=== PATIENT | female | born 1970 | race Caucasian/White ===

== ENCOUNTER → 2016-09-07 | Outpatient (CLI) | payer BC ==
[2015-11-20 14:20] VITALS: BP 117/74
[~2016-09-07] MED LIST: ALBU4TAB3 PO; ALPR0.25 PO; BECL8.7A6 IH; CETI10TA22 PO; EPIN0.3A4 IJ; FLUO10TA PO; HYDR-971 PO; MULT1TAB97 PO; NORE1TAB96 PO; OMEG1CAP6 PO; OMEP40CA5 PO; PROAIR HFA8.5 GM INH; SUMA20SP NS; TAMO20TA PO; VENL75CA PO; VERA240C2 PO
--- NOTE | 2016-09-07 13:03 | RAD ---
DATE: 09/07/2016 EXAM: DIGITAL DIAGNOSTIC BILATERAL HISTORY: History of left breast cancer post lumpectomy and radiation therapy. COMPARISON: 10/14/2014, 10/15/2015 and 11/20/2015 This study was interpreted with the benefit of Computerized Aided Detection (CAD). FINDINGS: Digital MLO and CC mammograms of both breasts were obtained. Additionally bilateral implant displacement digital mammograms in the MLO and CC projections of both breasts were obtained. Comparison studies are dated 10/14/2014, 10/15/2015 and 11/20/2015. Bilateral breast implants are again seen. Postsurgical changes are seen in the left breast consistent with the patient's history of a lumpectomy. The breast parenchyma is heterogeneously dense which can obscure a lesion on mammography ( breast density code C). No new dominant mass is seen. No malignant appearing calcification is noted. IMPRESSION: BI-RADS Category 2 benign findings. There is no mammographic evidence of malignancy. Routine yearly screening mammography is recommended for follow-up. BI-RADS CATEGORY: 2 BENIGN FINDING(S) RECOMMENDED FOLLOW-UP: 12M 12 MONTH FOLLOW-UP PQRS compliance statement: Patient information was entered into a reminder system with a target due date 09/07/2017 for the next mammogram. Mammography is a sensitive method for finding small breast cancers, but it does not detect them all and is not a substitute for careful clinical examination. A negative mammogram does not negate a clinically suspicious finding and should not result in delay in biopsying a clinically suspicious abnormality. "Our facility is accredited by the [employer] Mammography [employer]."
== END | disposition home or self-care (01) ==
LOC: MAMMO 12:12
PROVIDERS: ATTEND Family Medicine
DX: D05.12 Intraductal carcinoma in situ of left breast (principal)
CPT/HCPCS: G0204; 77066

== ENCOUNTER → 2017-09-23 | Outpatient (CLI) | payer OTHER | END | disposition home or self-care (01) | LOC: MAMMO 10:18 | DX: R92.8 Other abnormal and inconclusive findings on diagnostic imaging of breast (principal); Z85.3 Personal history of malignant neoplasm of breast | CPT/HCPCS: 77066 ==

== ENCOUNTER → 2019-11-01 | Outpatient (CLI) | payer OTHER ==
[2015-11-20 14:20] VITALS: BP 117/74
[~2019-11-01] MED LIST changes: +ALBU2.5V8 INH; -CETI10TA22 PO; +CETI10TA24 PO; -EPIN0.3A4 IJ; +EPIPEN 2-P0.3 MG/0.3 IJ; +HYDR-3164 PO; -HYDR-971 PO; +OMEP40CA45 PO; -OMEP40CA5 PO; -PROAIR HFA8.5 GM INH
--- NOTE | 2019-11-01 10:32 | RAD ---
DATE: 11/01/2019 9:53 AM EXAM: DIGITAL DIAGNOSTIC BILATERAL HISTORY: History of stage 0 left breast cancer in 2016. Surveillance Follow-up. COMPARISON: Mammograms of October 04, 2018, 09/23/2017, 09/07/2016 and 10/15/2015 Bilateral CC and MLO views of the breasts were performed. Implant displaced views were also obtained. Bilateral breast tomosynthesis was performed in implant displaced CC and MLO projections. This study was interpreted with the benefit of Computerized Aided Detection (CAD). FINDINGS: Breast Density: FATTY The Breast Parenchyma is primarily fatty replaced. Breast parenchyma level density A. Benign architectural variation consistent with a surgical scar in the anterior lateral left breast is present. No suspicious masses, microcalcifications or architectural distortion is present to suggest malignancy in either breast. The visualized axillae are unremarkable. IMPRESSION: No mammographic evidence of malignancy. BI-RADS CATEGORY: 2 BENIGN FINDING(S) RECOMMENDED FOLLOW-UP: 12M 12 MONTH FOLLOW-UP Annual screening mammography is recommended, unless clinically indicated sooner based on symptoms or change in physical exam. PQRS compliance statement: Patient information was entered into a reminder system with a target due date 11/01/2020 for the next mammogram. Mammography is a sensitive method for finding small breast cancers, but it does not detect them all and is not a substitute for careful clinical examination. A negative mammogram does not negate a clinically suspicious finding and should not result in delay in biopsying a clinically suspicious abnormality. "Our facility is accredited by the [employer] Mammography [employer]."
== END | disposition home or self-care (01) ==
LOC: MAMMO 09:48
PROVIDERS: ATTEND Family Medicine
DX: R92.8 Other abnormal and inconclusive findings on diagnostic imaging of breast (principal); Z85.3 Personal history of malignant neoplasm of breast
CPT/HCPCS: 77066

== ENCOUNTER → 2020-11-04 | Outpatient (CLI) | payer OTHER ==
[2015-11-20 14:20] VITALS: BP 117/74
[~2020-11-04] MED LIST changes: -CETI10TA24 PO; +CETI10TA74 PO; -OMEP40CA45 PO; +OMEP40CA7 PO
--- NOTE | 2020-11-04 12:26 | RAD ---
EXAM: 1. BILATERAL DIGITAL 3-D DIAGNOSTIC MAMMOGRAPHY. 2. BILATERAL BREAST ULTRASOUND. HISTORY: Personal history of left breast cancer status post breast conservation therapy in 2016. Now recently status post bilateral implant revision. TECHNIQUE: Bilateral full field digital images were obtained in CC and MLO projections and tomosynthe sis with and without implant displacement. Computer-aided detection was applied. Sonography of both b reasts was also performed. COMPARISON: 11/01/2019, 10/04/2018, 09/23/2017. COMPOSITION: B. There are scattered areas of fibroglandular density. FINDINGS: Bilateral subpectoral silicone implants are noted in place. There appear intact. The lumpectomy site lateral to the left nipple on the CC projection now has a more nodular appearance . This is not well seen on the MLO projection. On today's sonography, the fat in the region is diffus pawan hyperechoic, likely reflecting edema in the recent postoperative setting. The sweat band sewer notes a benign cyst at the 5:30 position 6 cm from the nipple. A hypoechoic region along the scar lateral to the nipple appears to be a small cyst measuring 6 x 3 mm, along with more hypoechoic fat, likely spa red from regional edema. No suspicious mass is identified on the left. On the right, a small nodule medial to the nipple line appears circumscribed on tomosynthesis. On todeandre mistry's sonography, this may correspond with a 5 mm cyst at the 11:30 position 5 cm from the nipple. A f ew additional tiny cysts are noted on the right. There is no suspicious mammographic or sonographic f inding. Sonography of both axillae reveal no pathologic-appearing lymph nodes. BI-RADS CATEGORY 3: Probably Benign. RECOMMENDATION: 1. These findings were discussed with the patient. It was planned to follow up the new, likely postop erative appearance of the left lumpectomy site in 6 months with mammography and sonography. Electronically signed by: Lili Zhong MD (11/04/2020 12:24 PM) [email or web address]
== END ==
LOC: MAMMO 09:27
PROVIDERS: ATTEND Internal Medicine Hematology & Oncology
DX: N63.11 Unspecified lump in the right breast, upper outer quadrant (principal); N60.01 Solitary cyst of right breast; Z90.12 Acquired absence of left breast and nipple
CPT/HCPCS: 76641; 77066; G0279; 77062

== ENCOUNTER → 2021-05-14 | Outpatient (CLI) | payer BC, OTHER ==
[2015-11-20 14:20] VITALS: BP 117/74
--- NOTE | 2021-05-14 12:31 | RAD ---
PROCEDURE: MG DIGITAL UNILAT DIAGNOSTIC MAMMO WITH MICHELLE HISTORY: The patient is 51 years old and is seen for Reason: 6 MO / Spl. Instructions: / History: . COMPARISON: November 04, 2020 TECHNIQUE: Left breast CC and MLO views. DENSITY: There are scattered fibroglandular densities. FINDINGS: Post lumpectomy changes within the left outer breast, similar compared to prior. No new s uspicious mass, microcalcification or architectural distortion. Unchanged left upper outer mass, like ly intramammary lymph node. Left breast implant. IMPRESSION: Unchanged left lumpectomy site. Recommend return to annual screening. Recommend annual screening mammograms per [employer] guidelines. Target date of return bilateral screening mammogram October 2021. BI-RADS category 2 Benign Patient entered into a reminder system for annual screening mammogram. Electronically signed by: Pepe Gross DO (05/14/2021 12:29 PM) [email or web address]
== END ==
LOC: MAMMO 09:28
PROVIDERS: ATTEND Internal Medicine Hematology & Oncology
DX: N63.20 Unspecified lump in the left breast, unspecified quadrant (principal); Z90.12 Acquired absence of left breast and nipple
CPT/HCPCS: 77065; G0279; 77061